=== PATIENT | male | born 1940 | race Caucasian/White ===

== ENCOUNTER 2018-09-07 12:38 | Outpatient (CLI) | payer MEDICARE, OTHER, SELFPAY ==
[2018-09-07] MEDS: Gadoterate meglumine 20 ML VIAL 18 ML IVP (14:04)
--- NOTE | 2018-09-07 14:20 | DI.MRI_ITS ---
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 T 2 sagittal, T 1, T 2, FLAIR, diffusion and gradient echo axial and post Gadolinium T 1 axial and coronal sequences were performed. Again noted are innumerable abnormally enhancing masses in both hemispheres. There has been interval increase in size and conspicuity of the majority of the lesions, particularly the right parietal lesion which now measures 4.4 x 4 cm compared with 3.2 x 2.5 cm. The left frontal lesion measures 3.7 x 3.6 cm. There is significant surrounding edema in both the right frontal and right parietal lesions. There is no significant impression upon the ventricles or midline shift. Multiple small cerebellar lesions apparent slightly increased in size. IMPRESSION: Interval increase in size of metastatic lesions, particularly the right parietal lesion.
== END 2018-09-07 12:58 ==
PROVIDERS: PCP Radiology Radiation Oncology; Visit Provider Radiology Radiation Oncology
DX: C79.31 Secondary malignant neoplasm of brain (principal); Z85.820 Personal history of malignant melanoma of skin; R27.8 Other lack of coordination; Z92.3 Personal history of irradiation
CPT/HCPCS: 70553

== ENCOUNTER 2018-09-29 09:57 | Outpatient (RCR) | payer MEDICARE, OTHER, SELFPAY ==
[2018-09-29] MEDS: Normal Saline Flush 10 ML SYR IVP (10:05)
[2018-09-29 10:23] LABS: Abs Immature Grans 0.31 k/cumm (0.0-0.09); HCT 34.7 % (40.0-50.0); HGB 11.7 g/dL (13.5-17.5); Mean Corp. HGB Concentration 33.7 g/dL (32.0-36.0); Mean Corpuscular Hemoglobin 29.9 pg (27.0-33.0); Mean Corpuscular Volume 88.7 fL (80-95); Mean Platelet Volume 8.5 fL (8.0-11.0); Platelet Count 222 x1000/uL (130-400); RBC 3.91 m/cumm (4.50-6.00); White Blood Cell Count 5.47 k/cumm (4.4-10.8)
[2018-09-29 10:44] LABS: ALT 74 U/L (12-78); AST 30 U/L (15-37); Albumin 2.7 g/dL (3.4-5.0); Alkaline Phosphatase 60 U/L (46-116); Anion Gap 7.8 mmol/L (3-11); BUN 18 mg/dL (7-18); Bilirubin, Total 0.6 mg/dL (0.2-1.0); CO2 28.2 mmol/L (21.0-32.0); CREATININE 0.78 mg/dL (0.70-1.30); Calcium 9.1 mg/dL (8.5-10.1); Chloride 103 mmol/L (98-107); Glucose 68 mg/dL (70-100); Potassium 3.8 mmol/L (3.5-5.1); Sodium 139 mmol/L (136-145); TSH 2.03 uIU/mL (0.358-3.74); Total Protein 6.4 g/dL (6.4-8.2)
[2018-09-29 10:50] LABS: Absolute Lymphocyte Count 1.37 k/cumm (1.2-3.4); Absolute Monocyte Count 0.05 k/cumm (0.11-0.7); Absolute Neutrophil Count 3.77 k/cumm (1.2-6.7); Diff Comment Manual Differential; Polychromasia Present
[2018-09-29 14:14] LABS: T4 6.4 ug/dL (4.5-12.5)
== END 2018-10-10 23:59 | disposition home or self-care (01) ==
LOC: INF 09:57
PROVIDERS: PCP Radiology Radiation Oncology; Visit Provider Internal Medicine Hematology & Oncology
DX: C79.9 Secondary malignant neoplasm of unspecified site (principal); E03.2 Hypothyroidism due to medicaments and other exogenous substances; Z45.2 Encounter for adjustment and management of vascular access device
CPT/HCPCS: 36591; 80053; 84436; 84443; 85025